=== PATIENT | male | born 1945 | race Caucasian/White ===

== ENCOUNTER → 2016-09-30 | Day surgery (SDC) | payer OTHER, BC, MEDICARE ==
[~2016-09-30] VITALS: Ht 177.8 cm; Wt 124.7 kg
[~2016-09-30] MED LIST: ASPIRIN EC81 M1 PO; CIPRO500 M1 PO; FLOMAX0.4 M1 PO; KAZANO 12.5-1,1 EACH; LEVEMIR100 UNIT/1 SC; LISINOPRIL20 M1 PO; MEXILETINE HCL200 MG; OMEPRAZOLE20 M2 PO; PYRIDIUM100 M1 PO; TOPROL XL50 M2
--- NOTE | 2016-09-30 14:00 | Operative Report ---
Operative/Inv Procedure Report Surgery Date: 09/30/16 Name of Procedure: cystoscopy: DIVU of urethral strictures Pre-Operative Diagnosis: hematuria Post-Operative Diagnosis: urethral stricture Estimated Blood Loss: scant Surgeon/Auto Tech: MELISSA CODY MD Anesthesia: moderate sedation Drains: 18fr whitfield Complications: none Operative/Procedure Note Note: The patient was taken to the operating room and placed on the OR table in supine position. Timeout was performed, with the patient awake, in order to confirm, and other pertinent perioperative information. After adequate anesthesia and antibiotics the patient was then placed lithotomy stirrups draped and prepped in usual surgical fashion. A 22 Sinhala cystoscope sheath with a 30 angle lens was inserted under direct visualization. Upon entering the distal bulbar urethra, a narrow stricture/scar tissue was seen with a very narrow lumen. A 0.038 Glidewire was inserted into the cystoscope and advanced into the narrow aperture without difficulty. At this point the DVIU scope with straight cold knife was inserted without difficulty to the level of the stricture. Stricturotomy was performed at at the 12 o'clock position in order to open the stricture wide. The DVIU Cystoscope was then able to enter the bulbar urethra, through the obstructing prostate, and the bladder without significant difficulty. The bladder was noted to be severely trabeculated. However, the bladder was free of tumor, free of stone. The bladder was then drained via the cystoscope. The cystoscope was then retracted back to the level of the urethral stricture. The cystoscope was then removed. A 20Fr./5cc whitfield was inserted easily draining clear fluid, and the balloon was filled with 5cc sterile water. All sponge needle and instrument count were correct at the of the case. The patient tolerated procedure was then taken to the recovery room in satisfactory condition. His discharge home with antibiotics and pain medication, and to follow up in 1-2 weeks' time. Findings: multiple urethral strictures-narrow Discharge Disposition: Same Day Admissions CC: MELISSA CODY MD
== END ==
LOC: STS 03:04
DX: N35.9 Urethral stricture, unspecified (principal); N40.1 Benign prostatic hyperplasia with lower urinary tract symptoms; N32.89 Other specified disorders of bladder; R35.0 Frequency of micturition; Z87.440 Personal history of urinary (tract) infections; E11.40 Type 2 diabetes mellitus with diabetic neuropathy, unspecified; Z79.84 Long term (current) use of oral hypoglycemic drugs; E66.01 Morbid (severe) obesity due to excess calories; Z68.41 Body mass index [BMI] 40.0-44.9, adult; E78.00 Pure hypercholesterolemia, unspecified
CPT/HCPCS: 36415; J1885; J2250